=== PATIENT | female | born 1985 | race Caucasian/White ===

== ENCOUNTER 2016-08-19 23:58 | Emergency (ER) | payer MEDICAID ==
[~2016-08-19] VITALS: Ht 172.7 cm; Wt 90.0 kg
[~2016-08-19 23:58] MED LIST: ALBU18HF INH; ALPR2TAB2 PO; BUPR300T49 PO; BUPR75TA5 PO; DEXA2TAB PO; IMITREX PO; LEVO750T26 PO; MA; ONDA4TAB7 PO; PROM25SU34 RC; PROP20TA PO; [UNRECOGNIZED DRUG - CODE] BC
[2016-08-20] MEDS ORDERED: ONDANSETRON 2MG/ML, 2ML IVPush ONE ×2 (00:30→03:00)
[2016-08-20] MEDS ORDERED: CLINDAMYCIN PMX 600MG/50ML 50 ML IVPB ONE (00:30)
[2016-08-20] MEDS ORDERED: SODIUM CHLORIDE FLUSH 10ML SYR IVF ONE (00:30)
[2016-08-20] MEDS ORDERED: HYDROmorphone 1 MG/ML, 1ML ONE ×2 (00:45→01:54)
[2016-08-20] MEDS ORDERED: ONDANSETRON 2MG/ML, 2ML ONE ×3 (00:45→03:03)
[2016-08-20] MEDS ORDERED: CLINDAMYCIN PMX 900MG/50ML 0 ML ONE (00:45)
[2016-08-20] MEDS ORDERED: CLINDAMYCIN PMX 600MG/50ML 50 ML ONE (00:47)
[2016-08-20] MEDS: HYDROmorphone 1 MG/ML, 1ML IVPush PRN ×2 (00:57→02:08)
[2016-08-20 01:56] LABS: BLOOD UREA NITROGEN 10 mg/dL (7-18)
[2016-08-20] MEDS ORDERED: LIDOCAINE 1%, 20ML ONE (02:35)
[2016-08-20] MEDS ORDERED: BUPIVACAINE 0.25% ONE (02:36)
[2016-08-20] MEDS ORDERED: OXYcodone/APAP 10/325MG TABLET ONE (02:56)
[2016-08-20 02:58] VITALS: BP 154/89
[2016-08-20] MEDS ORDERED: OXYcodone/APAP 10/325MG TABLET PO ONE (03:00)
== END 2016-08-20 02:57 | disposition home or self-care (01) ==
LOC: ED 23:59
DX: K08.89 Other specified disorders of teeth and supporting structures (principal); J45.909 Unspecified asthma, uncomplicated; F17.210 Nicotine dependence, cigarettes, uncomplicated
CPT/HCPCS: 36415; 64400; 80048; 82040; 85025; 96365; 96375; 96376; 99284; J1170; J2405